=== PATIENT | female | born 1950 | race Caucasian/White ===

== ENCOUNTER 2020-04-13 16:31 | Emergency (ER) | payer MEDICARE ==
--- NOTE | 2020-04-13 16:59 | EDM.PDOC ---
ED HPI GENERAL MEDICAL PROBLEM - General Chief Complaint: Neck Problem Stated Complaint: NECK PAIN Time Seen by Provider: 04/13/20 16:59 Source of Information: Reports: Patient History Limitations: Reports: No Limitations - History of Present Illness INITIAL COMMENTS - FREE TEXT/NARRATIVE: Alert 70 year old female presents to [facility] for evaluation of neck stiffness without injury. Neck pain started this am when she woke up but got worse while riding in the vehicle over the last 3 hours. Patient denies fall, injury, fever or other lara feeling ill. Patient was in a normal state of health yesterday evening before going to bed. Patient has had this happen once before which improved with massage and stretching exercises. Patient took Tylenol with no improvement of symptoms. Patient denies headache, pain or numbness that radiates down either arm. neck Pain Score (Numeric/FACES): 10 - Related Data Allergies Allergy/AdvReac Type Severity Reaction Status Date / Time Sulfa (Sulfonamide Allergy Itching Verified 04/13/20 16:49 Antibiotics) Home Meds: Home Meds Albuterol Sulfate [Albuterol Sulfate Hfa] 2 puff IH BID 04/13/20 [History] Cyclobenzaprine [Flexeril] 5 - 10 mg PO TID PRN 5 Days #15 tab 04/13/20 [Rx] Fluticasone Propion/Salmeterol [Advair 250-50 Diskus] 1 dose INH BID 04/13/20 [History] Naproxen [Naprosyn] 500 mg PO Q12H PRN 10 Days #20 tablet 04/13/20 [Rx] Rivaroxaban [Xarelto] 1 tab PO BEDTIME 04/13/20 [History] Tiotropium [Spiriva Handihaler] 1 spray INH DAILY 04/13/20 [History] lisinopriL [Lisinopril] 1 tab PO BID 04/13/20 [History] predniSONE [Prednisone] 20 mg PO BIDPC 5 Days #30 tablet 04/13/20 [Rx] ED ROS GENERAL - Review of Systems Review Of Systems: Comprehensive ROS is negative, except as noted in HPI. ED EXAM, UPPER BACK/NECK PAIN - Physical Exam Exam: See Below Exam Limited By: No Limitations General Appearance: Alert, WD/WN, Moderate Distress (due to severe left neck pain and stiffness) Eye Exam: Bilateral Eye: EOMI, Normal Inspection Ears Exam: Normal External Exam, Hearing Grossly Normal Nose Exam: Normal Inspection Throat/Mouth Exam: Normal Inspection, Normal Voice, No Airway Compromise Head Exam: Normocephalic Neck Exam: Limited Range of Motion, Tender Lateral (left supraspinateous, levator scapula and trapezius muscle in addition to anterior SCM left worsen that right) Nexus Criteria: No: Posterior, Midline Cervical Tenderness, Evidence of Intoxication, Altered Level of Consciousness, Focal Neurological Deficit, Painful Distraction Injuries Cardiovascular/Respiratory: Regular Rate, Rhythm, Normal Breath Sounds Psychiatric: Normal Affect, Normal Mood Course - Vital Signs Last Recorded V/S: Last Vital Signs Temp 96.5 C H 04/13/20 17:13 Pulse 91 04/13/20 17:13 Resp 18 04/13/20 17:13 BP 191/111 H 04/13/20 17:13 Pulse Ox 93 L 04/13/20 17:13 - Orders/Labs/Meds Orders: Active Orders 24 hr Category Date Time Status Vital Signs [RC] PFP Care 04/13/20 17:24 Active Departure - Departure Time of Disposition: 17:43 Disposition: Home, Self-Care 01 Clinical Impression: Torticollis - Discharge Information Prescriptions: Cyclobenzaprine [Flexeril] 5 - 10 mg PO TID PRN 5 Days #15 tab PRN Reason: Muscle Spasm Naproxen [Naprosyn] 500 mg PO Q12H PRN 10 Days #20 tablet PRN Reason: Pain predniSONE [Prednisone] 20 mg PO BIDPC 5 Days #30 tablet Instructions: Cervical Strain and Sprain Rehab-SportsMed, Preventing Hypertension, Acute Torticollis, Adult, Hypertension, Adult Referrals: Shadia Enriquez PA-C [Primary Care Provider] - Forms: ED Department Discharge Additional Instructions: 1. Heat 15-20 min 3-4 times per day. 2. Stretch 4-5 times per day as directed based on local of muscle strain. 3. Discuss Naproxen but would recommended Prednisone instead due to Xarelto (blood thinner use) 4. Flexeril 5-10 mg every 6 hours for muscle spasms and pain. (consider taking at night only) 5. Tylenol (Acetaminophen) every 6-8 hours for mild pain but may not be helpful. 6. Follow muscle strain information given. 7. Call PCP for recheck in 7-10 days if not improved. 8. Return for repeat evaluation if increase, changes, new or worsen symptoms. YOU BLOOD PRESSURE WAS ELEVATED DURING ER VISIT TODAY. PLEASE RECHECK 1-2 TIMES PER DAYS OVER THE NEXT 2 WEEKS AND DISCUSS WITH YOUR PRIMARY CARE PROVIDER. Muscle Spasms What are muscle spasms? Muscle spasms are involuntary contractions of a muscle. People often have "tight" muscles in their neck, back, shoulder, or legs. These are muscle spasms. Athletes sometimes get cramps in their muscles during strenuous activity. These cramps are also spasms. A common name for a muscle cramp or spasm is charley horse. This term is especially used for cramps in the leg. How do they occur? A spasm usually occurs from overusing muscles or from an injury. If you are dehydrated during strenuous activity, you are likely to have cramps. Muscle spasms, especially in the neck, also may occur when you are under lots of stress. Cramps in the calf of the leg often occur at night during sleep. What are the symptoms? A spasm feels like tightness or a knot in a muscle. It may hurt when you use the muscle. It may be hard to use the muscle. A cramp during exercise may be extremely painful. How are they diagnosed? Your healthcare provider will examine your muscles and find that they are very tight and tender to touch. How are they treated? Put ice packs on spasms caused by injury for the first 2 to 3 days. Use the ice for 20 to 30 minutes every 3 to 4 hours. Try stretching the muscle. For example, you can stretch a cramp in the calf of your leg by straightening your lower leg and pulling your foot toward your head. It may also help to stand on the leg that is cramping. Spasms that last a long time may be treated with moist heat for 20 to 30 minutes several times a day. Your healthcare provider may give you stretching exercises. Massage is very helpful. If you have severe cramps in your legs at night, your healthcare provider may prescribe some medicine to help. How can muscle spasms be prevented? Proper stretching exercises will help prevent spasms. Loosen the covers at the foot of your bed to help prevent leg cramps when you are sleeping. If you tend to get muscle cramps during exercise, make sure you drink enough fluids. Sports drinks may be very helpful. Some spasms may be caused by poor posture. For example, you may have neck spasms after sitting at a computer terminal for too long or in an awkward position. These spasms may be prevented with better posture. Written by Tommy Kaplan M.D. Muscle Strains What is a muscle strain? A strain is a stretch or tear of a muscle or tendon. Tendons are strong bands of tissue that attach muscles to bones. People commonly call muscle strains "pulled muscles." How does it occur? The usual cause of muscle strain is forceful contraction (tightening) of the muscle during an activity. For example, it might happen when you run, jump, throw, or lift a heavy object. What are the symptoms? You may feel a burning or a popping at the time of the injury. The injured muscle hurts. It is hard to use the injured muscle. The injured area may be swollen or bruised. How is it diagnosed? Your healthcare provider will examine the injured area and find that it is tender. How is it treated? The general rule for treating strains is R-I-C-E: Rest: At first you will need to avoid activities that cause pain. If you have a leg strain you may need crutches. Ice packs: Put ice packs on the strained muscle for 20 to 30 minutes every 3 to 4 hours. Do this for 2 to 3 days or until the pain goes away. You can also do i ce massage: Freeze water in a cup and tear back the top of the cup. Rub the injured area with the ice for 5 to 10 minutes, three times a day. This is especially useful for strains you have had for more than a few days. Compression: Wrap an elastic bandage around your strained muscle to reduce swelling. Elevation: Keep the injured muscle elevated above your heart as much as possible. Also: Depending on which muscle you have strained, you may be given crutches, a brace, or a sling. Your healthcare provider may recommend anti-inflammatory medicine or another pain reliever. Adults aged 65 years and older should not take non-steroidal anti-inflammatory medicine for more than 7 days without their healthcare provider's approval. You may be given exercises to help you recover faster. How can it be prevented? The best way to prevent strains is to warm up properly and stretch your muscles before exercise. The stronger and more flexible your muscles are, the less likely they will be strained. Written by Tommy Kaplan M.D. Discharge Instructions Neck Strain You have been seen today for a neck sprain or strain. Neck strains usually result from an injury to the neck. Car accidents, contact sports, and falls are common causes of neck strain. Sometimes your neck can start to hurt because of increased activity, muscle tension, an abnormal sleeping position, or because of other problems like arthritis in the neck. Neck pain usually comes from injured muscles and ligaments. Sometimes there is a herniated (slipped) disc. We do not usually do MRI scans to look for these right away, since most herniated discs will get better on their own with time. Today, we did not find any evidence that your neck pain was caused by a serious or dangerous condition. However, sometimes symptoms develop over time and cannot be found during an emergency visit, so it is very important that you follow up with your primary provider. Generally, every Emergency Department visit should have a follow-up clinic visit with either a primary or a specialty clinic/provider. Please follow-up as instructed by your emergency provider today. Return to the Emergency Department if: You have increasing pain in your neck. You develop difficulty swallowing or breathing. You have numbness, weakness, or trouble moving your arms or legs. You have severe dizziness and difficulty walking. You are unable to control your bladder or bowels. You develop severe headache or ringing in the ears. What can I do to help myself at home? If you had an injury, use cold for the first 1-2 days. Cold helps relieve pain and reduce inflammation. Apply ice packs to the neck or areas of pain every 1-2 hours for 20 minutes at a time. Place a towel or cloth between your skin and the ice pack. After the first 2 days, using heat can help with neck pain and stiffness. You may use a warm shower or bath, warm towels on the neck, or a heating pad. Do not sleep with a heating pad, as you can be burned. Pain medications - You may take a pain medication such as Tylenol (acetaminophen), Advil and Motrin (ibuprofen), or Aleve (naproxen). It is usually best to rest the neck for 1-2 days after an injury, then start gentle stretching exercises. It is helpful to place a small pillow under the nape of your neck to provide proper neutral positioning. You should stay active and do your usual work as much as you can, unless this involves heavy physical labor. Ask your provider if you need work restrictions. If you were given a prescription for medicine here today, be sure toread all of the information (including the package insert) that comes with your prescription. This will include important information about the medicine, its side effects, and any warnings that you need to know about. The pharmacist who fills the prescription can provide more information and answer questions you may have about the medicine. If you have questions or concerns that the pharmacist cannot address, please call or return to the Emergency Department. Remember that you can always come back to the Emergency Department if you are not able to see your regular provider in the amount of time listed above, if you get any new symptoms, or if there is anything that worries you. Sepsis Event Note (ED) - Focused Exam Vital Signs: Vital Signs Temp Pulse Resp BP Pulse Ox 04/13/20 17:13 96.5 C H 91 18 191/111 H 93 L 04/13/20 17:06 96.5 C H 91 18 191/111 H 93 L - My Orders Last 24 Hours: My Active Orders 04/13/20 17:24 Vital Signs [RC] PFP - Assessment/Plan Last 24 Hours: My Active Orders 04/13/20 17:24 Vital Signs [RC] PFP
== END 2020-04-13 17:56 | disposition home or self-care (01) ==
LOC: JP.ED 16:31
DX: M43.6 Torticollis (principal); Z88.2 Allergy status to sulfonamides; Z79.899 Other long term (current) drug therapy
CPT/HCPCS: 99283

== ENCOUNTER 2020-07-01 17:10 | Emergency (ER) | payer MEDICARE ==
[2020-07-01] MEDS ORDERED: Cyclobenzaprine 10 MG Tab PO ONE (17:52)
--- NOTE | 2020-07-01 18:04 | EDM.PDOC ---
ED HPI GENERAL MEDICAL PROBLEM - General Chief Complaint: Back Pain or Injury Stated Complaint: LOW BACK PAIN Time Seen by Provider: 07/01/20 17:33 Source of Information: Reports: Patient History Limitations: Reports: No Limitations - History of Present Illness INITIAL COMMENTS - FREE TEXT/NARRATIVE: 70 yo presents with 2 days of left lower back pain. She woke with the pain yes terday. Does not recall change of activity or trauma. denies dysuria. afebrile. does complain of decrease in appetite however she is not nauseated Left Lower Back Pain Score (Numeric/FACES): 10 - Related Data Allergies Allergy/AdvReac Type Severity Reaction Status Date / Time Sulfa (Sulfonamide Allergy Itching Verified 07/01/20 17:25 Antibiotics) Home Meds: Home Meds Albuterol Sulfate [Albuterol Sulfate Hfa] 2 puff IH BID 04/13/20 [History] Fluticasone Propion/Salmeterol [Advair 250-50 Diskus] 1 dose INH BID 04/13/20 [History] Naproxen [Naprosyn] 500 mg PO Q12H PRN 10 Days #20 tablet 04/13/20 [Rx] Rivaroxaban [Xarelto] 1 tab PO BEDTIME 04/13/20 [History] Tiotropium [Spiriva Handihaler] 1 spray INH DAILY 04/13/20 [History] lisinopriL [Lisinopril] 1 tab PO BID 04/13/20 [History] Past Medical History HEENT History: Reports: Cataract, Impaired Vision Cardiovascular History: Reports: Arrhythmia, Hypertension Respiratory History: Reports: COPD, SOB Gastrointestinal History: Reports: None Genitourinary History: Reports: None HR GENERALIST History: Reports: , Spontaneous Musculoskeletal History: Reports: Arthritis Hematologic History: Reports: Anticoagulation Therapy Dermatologic History: Reports: None - Infectious Disease History Infectious Disease History: Reports: Chicken Pox, Measles, Mumps - Past Surgical History Head Surgeries/Procedures: Reports: None HEENT Surgical History: Reports: Cataract Surgery, Tonsillectomy Cardiovascular Surgical History: Reports: None Respiratory Surgical History: Reports: None GI Surgical History: Reports: Colonoscopy Female Surgical History: Reports: Salpingo-Oophorectomy Musculoskeletal Surgical History: Reports: Other (See Below) Other Musculoskeletal Surgeries/Procedures:: wrist Dermatological Surgical History: Reports: Skin Biopsy Social & Family History - Tobacco Use Smoking Status *Q: Current Every Day Smoker Years of Tobacco use: 50 Packs/Tins Daily: 0.5 - Caffeine Use Caffeine Use: Reports: None - Alcohol Use Days Per Week of Alcohol Use: 7 Number of Drinks Per Day: 2 Total Drinks Per Week: 14 - Recreational Drug Use Recreational Drug Use: No ED ROS GENERAL - Review of Systems Review Of Systems: See Below Constitutional: Denies: Fever, Chills, Fatigue Respiratory: Denies: Shortness of Breath, Wheezing Cardiovascular: Denies: Chest Pain ED EXAM,LOWER BACK PAIN/INJURY - Physical Exam Exam: See Below Exam Limited By: No Limitations General Appearance: Alert, WD/WN, No Apparent Distress Respiratory/Chest: No Respiratory Distress, Lungs Clear, Normal Breath Sounds. No: Crackles, Rhonchi, Wheezing Cardiovascular: Regular Rate, Rhythm, No Murmur GI/Abdominal: Soft, Non-Tender Back Exam: Muscle Spasm (left lower back). No: CVA Tenderness (R), CVA Tenderness (L) Neurological: Alert, Normal Mood/Affect Course - Vital Signs Last Recorded V/S: Last Vital Signs Temp 36.9 C 07/01/20 17:27 Pulse 109 H 07/01/20 17:27 Resp 16 07/01/20 17:27 BP 167/96 H 07/01/20 17:27 Pulse Ox 91 L 07/01/20 17:27 - Orders/Labs/Meds Labs: Laboratory Tests 07/01/20 Range/Units 18:10 Urine Color Yellow (YELLOW) Urine Appearance Clear (CLEAR) Urine pH 7.5 (5.0-8.0) Ur Specific [place] 1.020 (1.008-1.030) Urine Protein Trace H (NEGATIVE) mg/dL Urine Glucose (UA) 100 H (NEGATIVE) mg/dL Urine Ketones 40 H (NEGATIVE) mg/dL Urine Occult Blood Negative (NEGATIVE) Urine Nitrite Negative (NEGATIVE) Urine Bilirubin Negative (NEGATIVE) Urine Urobilinogen 1.0 (0.2-1.0) EU/dL Ur Leukocyte Esterase Small H (NEGATIVE) Urine RBC Not seen (0-5) Urine WBC 5-10 H (0-5) Ur Epithelial Cells Few Urine Bacteria Rare Meds: Medications Discontinued Medications Generic Name Dose Route Start Last Admin Trade Name Freq PRN Reason Stop Dose Admin Cyclobenzaprine HCl 10 mg 07/01/20 17:52 07/01/20 18:09 Flexeril PO 07/01/20 17:53 10 mg ONETIME ONE Administration Departure - Departure Time of Disposition: 18:34 Disposition: Home, Self-Care 01 Condition: Good Clinical Impression: Glucose found in urine on examination Lower back pain Qualifiers: Chronicity: acute Back pain laterality: left Sciatica presence: without sciatica Qualified Code(s): M54.5 - Low back pain - Discharge Information *PRESCRIPTION DRUG MONITORING PROGRAM REVIEWED*: Not Applicable *COPY OF PRESCRIPTION DRUG MONITORING REPORT IN PATIENT SP: Not Applicable Instructions: Back Exercises, [id number] Referrals: Shadia Enriquez PA-C [Primary Care Provider] - Forms: ED Department Discharge Additional Instructions: stretching of lower back as demonstrated in exam room cyclobenzaprine 10 mg twice daily as needed up to twice daily for pain you had sugar in your urine today please follow-up with your primary care provider because this is a sign of diabetes you were also dehydrated today increase your fluid intake with goal of 1 liter per day Sepsis Event Note (ED) - Evaluation Sepsis Screening Result: No Definite Risk - Focused Exam Vital Signs: Vital Signs Temp Pulse Resp BP Pulse Ox 07/01/20 17:27 36.9 C 109 H 16 167/96 H 91 L 07/01/20 17:25 36.9 C 109 H 16 167/96 H 91 L
== END 2020-07-01 18:44 | disposition home or self-care (01) ==
LOC: JP.ED 17:10
DX: M54.5 Low back pain (principal); R81 Glycosuria; I10 Essential (primary) hypertension; J44.9 Chronic obstructive pulmonary disease, unspecified; F17.210 Nicotine dependence, cigarettes, uncomplicated; Z79.01 Long term (current) use of anticoagulants; Z88.2 Allergy status to sulfonamides; Z79.899 Other long term (current) drug therapy
CPT/HCPCS: 81001; 99283; A9270

== ENCOUNTER 2022-06-14 09:31 | Emergency (ER) | payer MEDICARE | END 2022-06-14 12:35 | disposition home or self-care (01) | LOC: JP.ED 09:31 | DX: I11.0 Hypertensive heart disease with heart failure (principal); I50.9 Heart failure, unspecified; M54.6 Pain in thoracic spine; R09.02 Hypoxemia; J44.9 Chronic obstructive pulmonary disease, unspecified; Z20.822 Contact with and (suspected) exposure to COVID-19; Z79.899 Other long term (current) drug therapy; Z87.891 Personal history of nicotine dependence | CPT/HCPCS: 71046; 99283; U0002 ==